=== PATIENT | female | born 1990 | race Caucasian/White ===

== ENCOUNTER 2020-11-02 00:36 | Inpatient (IN) ==
[2020-11-02] MEDS ORDERED: Naloxone 0.4 MG/ML INJ IVP PRN (01:35)
[2020-11-02] MEDS ORDERED: Lidocaine 1% 20 ML MDV INFILT PRN (01:35)
[2020-11-02] MEDS ORDERED: Famotidine 20 MG/2 ML VIAL IVP PRN (01:35)
[2020-11-02] MEDS ORDERED: Metoclopramide 10 MG/2 ML VIAL IVP PRN (01:35)
[2020-11-02] MEDS ORDERED: *HR* Nalbuphine 10 MG/ML AMPUL IV PRN (01:35)
[2020-11-02 02:32] LABS: Basophils % 0.4 %; Eosinophils # 0.1 K/mcL (0.0-0.6); Eosinophils % 0.8 %; Hematocrit 32.7 % (35.3-44.9); Hemoglobin 10.9 g/dL (11.5-15.4); Immature Granulocytes % 0.9 % (0-4); Lymphocytes # 2.8 K/mcL (0.6-4.6); Lymphocytes % 26.2 %; Mean Corpuscular HGB Conc 33.3 g/dL (31.6-35.5); Mean Corpuscular Hemoglobin 32.4 pg (28.0-33.3); Mean Corpuscular Volume 97.3 fL (83.0-100.0); Mean Platelet Volume 13.2 fL (9.4-12.4); Neutrophils # 6.7 K/mcL (1.6-8.9); Platelet Count 113 K/mcL (140-400); Red Blood Count 3.36 M/mcL (3.82-4.97); Red Cell Distribution Width 12.3 % (11.5-14.5); Segmented Neutrophils % 62.7 %; White Blood Count 10.7 K/mcL (4.3-11.1)
[2020-11-02 02:51] LABS: Amphetamine Screen,Urine Negative ng/mL (Cutoff=1000); Barbiturate Screen,Urine Negative ng/mL (Cutoff=200); Benzodiazepines Screen,Urine Negative ng/mL (Cutoff=200); Cannabinoid Screen,Urine Negative ng/mL (Cutoff = 50); Cocaine Screen,Urine Negative ng/mL (Cutoff= 300); Opiate Screen,Urine Negative ng/mL (Cutoff=300); Phencyclidine Screen,Urine Negative ng/mL (Cutoff=25)
[2020-11-02 03:44] LABS: Adenovirus Not Detected (Not Detect); Coronavirus 229E Not Detected (Not Detect); Coronavirus HKU1 Not Detected (Not Detect); Coronavirus NL63 Not Detected (Not Detect); Coronavirus OC43 Not Detected (Not Detect); SARS-CoV-2 Not Detected (Not Detect)
[2020-11-02 03:45] LABS: Bordetella Pertussis Not Detected (Not Detect); Chlamydophila pneumoniae Not Detected (Not Detect); Human Metapneumovirus Not Detected (Not Detect); Human Rhinovirus/Enterovirus Not Detected (Not Detect); Influenza A Subtype 2009 H1 Not Detected (Not Detect); Influenza B Not Detected (Not Detect); Mycoplasma pneumoniae Not Detected (Not Detect); Parainfluenza Virus 1 Not Detected (Not Detect); Parainfluenza Virus 2 Not Detected (Not Detect); Parainfluenza Virus 3 Not Detected (Not Detect); Parainfluenza Virus 4 Not Detected (Not Detect); Respiratory Syncytial Virus Not Detected (Not Detect)
[2020-11-02] MEDS ORDERED: Oxytocin 20 units/ LR 1000 mL 20 UNIT/1,000 ML BAG IVC SCH (11:45)
[2020-11-02] MEDS: Ringers Solution, Lactated 1,000 ML IVC SCH ×2 (13:16→21:03)
[2020-11-02] MEDS ORDERED: EPHEDrine 50 MG/ML VIAL IVP PRN (15:48)
[2020-11-02] MEDS ORDERED: Ropivacaine/PF 0.2% 20 ML VIAL EP ONE (15:48)
[2020-11-02] MEDS ORDERED: *HR* FentaNYL (PF) 100 MCG/2 ML VIAL EP ONE (15:48)
[2020-11-02] MEDS ORDERED: Epidural Premix (fent/bupiv) 110 ML EP SCH (16:00)
[2020-11-03] MEDS: Ondansetron 4 MG/2 ML VIAL IVP PRN ×2 (01:58→09:21)
[2020-11-03] MEDS: Ringers Solution, Lactated 1,000 ML IVC SCH ×3 (03:55→11:08)
[2020-11-03] MEDS ORDERED: Oxytocin 20 units/ LR 1000 mL 20 UNIT/1,000 ML BAG IVC SCH (15:02)
[2020-11-03] MEDS ORDERED: Rho Immune Globulin 1,500 UNIT SYRINGE IM PRN (15:02)
[2020-11-03] MEDS ORDERED: Measles/Mumps/Rubella Vacc 0.5 ML VIAL SQ PRN (15:02)
[2020-11-03] MEDS ORDERED: Oxytocin 20 units/ LR 1000 mL 20 UNIT/1,000 ML BAG IVC ONE (15:02)
[2020-11-03] MEDS ORDERED: Lanolin 7 G OINT...G. TP PRN (15:02)
[2020-11-03] MEDS ORDERED: Benzocaine/Menthol 56 GM AEROSOL SPRAY TP PRN (15:02)
[2020-11-03] MEDS: Ibuprofen 600 MG TABLET PO PRN (15:12)
[2020-11-03] MEDS: Acetaminophen 325 MG TABLET PO PRN (19:18)
[2020-11-04] MEDS: Ibuprofen 600 MG TABLET PO PRN ×2 (00:22→09:35)
[2020-11-04] MEDS: Acetaminophen 325 MG TABLET PO PRN (04:13)
[2020-11-04 05:18] LABS: Basophils # 0.1 K/mcL (0.0-0.2); Basophils % 0.3 %; Eosinophils % 0.1 %; Hematocrit 25.2 % (35.3-44.9); Hemoglobin 8.2 g/dL (11.5-15.4); Immature Granulocytes % 0.7 % (0-4); Lymphocytes # 2.6 K/mcL (0.6-4.6); Lymphocytes % 13.3 %; Mean Corpuscular HGB Conc 32.5 g/dL (31.6-35.5); Mean Corpuscular Volume 98.4 fL (83.0-100.0); Mean Platelet Volume 13.3 fL (9.4-12.4); Monocytes # 1.3 K/mcL (0.0-1.3); Monocytes % 6.4 %; Neutrophils # 15.6 K/mcL (1.6-8.9); Platelet Count 104 K/mcL (140-400); Red Blood Count 2.56 M/mcL (3.82-4.97); Red Cell Distribution Width 12.3 % (11.5-14.5); Segmented Neutrophils % 79.2 %; White Blood Count 19.7 K/mcL (4.3-11.1)
[2020-11-04 08:05] VITALS: BP 117/76
[2020-11-04] MEDS ORDERED: Prenatal Vit/FA 1 EACH TABLET PO SCH (09:00)
== END 2020-11-04 18:06 | disposition home or self-care (01) | DRG 768 ==
LOC: 1NENULAB 00:36 → 1NENUOBS 11-03 17:02
PROVIDERS: ADMIT Advanced Practice Midwife; ATTEND Advanced Practice Midwife